=== PATIENT | female | born 1970 | race Caucasian/White ===

== ENCOUNTER 2018-05-21 00:23 | Emergency (ER) | END 2018-05-21 01:34 | disposition home or self-care (01) ==

== ENCOUNTER 2018-07-05 23:52 | Emergency (ER) | END 2018-07-06 03:10 | disposition home or self-care (01) ==

== ENCOUNTER 2018-10-22 12:52 | Emergency (ER) | payer SELFPAY ==
[~2018-10-22] VITALS: Ht 165.1 cm; Wt 78.5 kg
[~2018-10-22 12:52] MED LIST: CYCL10TA7 PO; D-ME473S2 PO; FLUT9.9S NASAL; IBUP800T48 PO; LORA10CA PO; PSEU60TA21 PO
[2018-10-22 13:03] VITALS: BP 140/84; PULSE 78; RESP 20; Ht 165.1 cm; Wt 78.5 kg
== END 2018-10-22 18:10 | disposition left against medical advice (07) ==
LOC: E/R 12:52
DX: Z53.21 Procedure and treatment not carried out due to patient leaving prior to being seen by health care provider (principal)